=== PATIENT | female | born 1975 | race African-American/Black ===

== ENCOUNTER 2025-01-30 22:20 | Emergency (ER) | payer OTHER ==
[~2025-01-30] VITALS: Ht 180.3 cm; Wt 96.0 kg
[~2025-01-30 22:20] MED LIST: ARIP2TAB27 PO; FLUO-418 PO; GABA-1181 PO; HYDR25TA2 PO; LISI-893 PO; TRAZ-252 PO
[2025-01-30 23:09] VITALS: TEMP 98.5
[2025-01-31 02:59] VITALS: BP 117/68; PULSE 74; RESP 18; O2SAT 100
== END 2025-01-31 03:45 | disposition home or self-care (01) ==
LOC: EMS 22:20
DX: F10.129 Alcohol abuse with intoxication, unspecified (principal); F31.9 Bipolar disorder, unspecified; I10 Essential (primary) hypertension; F12.90 Cannabis use, unspecified, uncomplicated; Z98.84 Bariatric surgery status; Z98.890 Other specified postprocedural states; Z79.899 Other long term (current) drug therapy; Y90.9 Presence of alcohol in blood, level not specified
CPT/HCPCS: 99283; Z7502